=== PATIENT | female | born 1995 | race Hispanic/Latino ===

== ENCOUNTER 2018-12-30 07:51 | Day surgery (SDC) | payer BC ==
[2018-12-29 11:29] VITALS: BMI 40.8
[2018-12-30 09:27] LABS: #Eosinphils 0.2 thou/uL (0.0-0.7); #Lymphocytes 1.5 thou/uL (1.20-3.40); #Monocytes 0.7 thou/uL (0.11-0.59); %Basophils 0.6 % (0.0-1.0); %Eosinophils 3.4 % (0.0-10.0); %Lymphocytes 27.3 % (21.0-51.0); %Monocytes 12.6 % (0.0-10.0); %Neutrophils 56.1 % (42.0-75.0); Hemoglobin 14.2 g/dL (12.0-16.0); Mean Corpuscular HGB CONC 34.4 g/dL (32.0-36.0); Mean Corpuscular Hemoglobin 30.8 pg (27.0-31.0); Mean Corpuscular Volume 89.7 fL (78.0-98.0); Mean Platelet Volume 6.9 fL (7.4-10.4); Platelet Count 327 thou/uL (130-400); RBC Distribution Width 11.3 % (11.5-14.5); White Blood Cell (WBC) Count 5.4 thou/uL (4.8-10.8)
[2018-12-30 09:32] LABS: BHCG - Serum Negative (NEGATIVE); Pregs Control Background? CLEAR/WHITE (CLR/WHITE); Pregs Control Bar Appear? YES (CONTROL BAR)
[2018-12-30] MEDS ORDERED: Fentanyl 100 MCG/2 ML VIAL ONE (09:52)
[2018-12-30] MEDS ORDERED: Bacitracin Zinc Ointment 30 gm TUBE ONE (09:57)
[2018-12-30] MEDS ORDERED: Bupivacaine PF 0.5% 30 ML VIAL ONE (09:57)
[2018-12-30] MEDS ORDERED: Betamet Acet/Betamet Na Ph 30 MG/5 ML VIAL ONE (09:57)
[2018-12-30] MEDS ORDERED: Midazolam HCl 2 mg/2 ml Vial ONE (10:02)
[2018-12-30] MEDS ORDERED: Ketorolac Tromethamine 30 MG/ML VIAL ONE (11:42)
[2018-12-30] MEDS ORDERED: Lidocaine 1% PF 5 ML VIAL ONE (15:45)
[2018-12-30] MEDS ORDERED: Dexamethasone 20 MG/5 ML VIAL ONE (15:45)
[2018-12-30] MEDS ORDERED: PROPOFOL 200 MG/20 ML VIAL ONE (15:45)
[2018-12-30] MEDS ORDERED: Ondansetron PF 4 MG/2 ML Vial ONE (15:45)
[2018-12-30] MEDS ORDERED: Metoclopramide HCl 10 MG/2 ML VIAL ONE (15:45)
[2018-12-30] MEDS ORDERED: Glycopyrrolate 0.2 MG/ML 5 ML SYRINGE ONE (15:45)
--- NOTE | 2018-12-31 00:50 | OP ---
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 PROCEDURES PERFORMED: Excision of 5 mm giant cell tumor over the right small finger PIP joint. SPECIMEN: 5 mm giant cell tumor. BLOOD LOSS: 5 mL. TOURNIQUET TIME: 4 minutes. DESCRIPTION OF PROCEDURE: The patient had the wound prepped and draped. Time-out was done appropriately. She was then given 10 mL of 0.5% Marcaine at metacarpophalangeal block level. We then exsanguinated the limb, inflated the tourniquet to 250 mmHg pressure, and then made a 1 cm incision centered over the mass, carried through skin and subcutaneous tissue medially, and a reddish thickened solid mass was seen over the joint, not penetrating the joint, joint capsule, or extensor mechanism. We removed the mass with sharp dissection and sent as a specimen. The tourniquet was deflated. Hemostasis was obtained. We closed wound with interrupted 4-0 nylon in a simple pattern, and the patient left the operating room with bulky dressing, and no evidence of anesthetic or operative complication. Job ID: [id number]
== END 2018-12-30 13:55 | disposition home or self-care (01) ==
LOC: SDC 07:51
PROVIDERS: ATTEND Orthopaedic Surgery Hand Surgery
PROC: 0LB80ZZ Excision of Left Hand Tendon, Open Approach (ICD-10-PCS; principal; 2018-12-30)
DX: D48.0 Neoplasm of uncertain behavior of bone and articular cartilage (principal); Z88.2 Allergy status to sulfonamides; Z79.899 Other long term (current) drug therapy
CPT/HCPCS: 36415; 84703; 85025; 85652; 88307; J0702; J1885; J2250; J3010; S0020